=== PATIENT | female | born 1990 | race Hispanic/Latino ===

== ENCOUNTER 2016-09-07 21:22 | Emergency (ER) | payer OTHER ==
[2016-09-07 21:54] VITALS: BMI 21.9
--- NOTE | 2016-09-07 21:54 | ED PDOC ---
Arrival/HPI - General Time Seen by Provider: 09/07/16 21:50 Historian: Patient - History of Present Illness Narrative History of Present Illness (Text): 09/07/16 21:51 26 y/o female, no significant pmh, allergic to levaquin, c/o rt. lateral foot pain s/p twisted about 4 hours ago. Pt. stated that she was on the high heel, twisted the rt. lateral foot, been having pain, no ankle pain or swelling, no night sweat, no dizziness, no calf or thigh pain, no other medical or psychological complaints. Past Medical History - Provider Review Nursing Documentation Reviewed: Yes Family/Social History - Physician Review Nursing Documentation Reviewed: Yes Family/Social History: Unknown Family HX Allergies/Home Meds Allergies/Adverse Reactions: Allergies levofloxacin [From Levaquin] Adverse Reaction (Verified 09/07/16 21:53) PAIN Home Medications: Home Meds Medication Instructions Recorded Confirmed Citalopram Hydrobromide [Celexa] 40 mg PO DAILY 09/07/16 09/07/16 lamoTRIgine [Lamictal] 25 mg PO DAILY 09/07/16 09/07/16 Review of Systems - Review of Systems Constitutional: absent: Fatigue, Fevers Eyes: absent: Vision Changes ENT: absent: Hearing Changes Respiratory: absent: Cough, Sputum Cardiovascular: absent: Chest Pain Gastrointestinal: absent: Abdominal Pain, Nausea, Vomiting Musculoskeletal: Arthralgias. absent: Back Pain, Neck Pain, Joint Swelling, Myalgias Skin: absent: Rash, Pruritis, Skin Lesions, Laceration, Abscess, Ulcer, Cellulitis Neurological: absent: Headache, Dizziness, Focal Weakness, Gait Changes, Speech Changes, Facial Droop, Disequilibrium, Seizure Physical Exam Vital Signs Temp Pulse Resp BP Pulse Ox 09/07/16 23:44 16 98 09/07/16 21:54 98.0 F 97 H 16 105/66 100 - Systems Exam Head: Present: Atraumatic, Normocephalic Pupils: Present: PERRL Extroacular Muscles: Present: EOMI Conjunctiva: Present: Normal Mouth: Present: Moist Mucous Membranes Neck: Present: Normal Range of Motion Respiratory/Chest: Present: Clear to Auscultation, Good Air Exchange. No: Respiratory Distress, Accessory Muscle Use Cardiovascular: Present: Regular Rate and Rhythm, Normal S1, S2. No: Murmurs Abdomen: Present: Normal Bowel Sounds. No: Tenderness, Distention, Peritoneal Signs Back: Present: Normal Inspection Upper Extremity: Present: Normal Inspection. No: Cyanosis, Edema Lower Extremity: Present: Normal Inspection, Other (Rt. ankle/foot: +ttp on the lateral foot region with mild swelling, no ankle tenderness or swelling, negative mariano and mills sign, FROM without limitation, sensation intact, motor 5/5, +DPPT pulses, capillary refill< 2 seconds, neurovascular intact. ). No: Edema Neurological: Present: GCS=15, Speech Normal. No: Motor Func Grossly Intact, Gait Normal, Memory Normal Skin: Present: Warm, Dry, Normal Color. No: Rashes Psychiatric: Present: Alert, Oriented x 3, Normal Insight, Normal Concentration Medical Decision Making ED Course and Treatment: 09/07/16 21:53 -rt. foot xray -tylenol -observe and reassess 09/07/16 22:55 -xray show no fracture or dislocation but clinically there is swelling and painful to bear weight, posterior splint applied by me with neurovascular intact , crutches given, advised repeat xray after 7 days if pain persist. -Discharge home with posterior splint, crutches, ice compression, non-weight bearing, take tylenol for pain as needed, follow up with your own pmd and stone planer within 2 days, return to the ER for any new or worsening signs or symptoms, repeat xray after 7 days if pain persist. - RAD Interpretation Radiology Orders: 09/07/16 21:51 FOOT RIGHT 3 VIEWS ROUTINE [RAD] Stat no evidence of displaced fracture. Med Specialist: Radiologist - Medication Orders Current Medication Orders: Discontinued Medications Acetaminophen (Tylenol 325mg Tab) 650 mg PO STAT STA Stop: 09/07/16 21:52 Last Admin: 09/07/16 22:41 Dose: 650 MG MAR Pain/Vitals Document 09/07/16 22:41 [email or web address] (Rec: 09/07/16 22:42 [email or web address] [id number]) Pain Reassessment Is This A Pain ReAssessment? No Sleep Is patient sleeping during reassessment? 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 Disposition/Present on Arrival - Present on Arrival Any Indicators Present on Arrival: No History of DVT/PE: No History of Uncontrolled Diabetes: No Urinary Catheter: No History of Decub. Ulcer: No - Disposition Have Diagnosis and Disposition been Completed?: Yes Diagnosis: Foot injury, Foot pain Disposition: HOME/ ROUTINE Disposition Time: 21:54 Patient Plan: Discharge Condition: GOOD Additional Instructions: Discharge home with posterior splint, crutches, ice compression, non-weight bearing, take tylenol for pain as needed, follow up with your own pmd and stone planer within 2 days, return to the ER for any new or worsening signs or symptoms, repeat xray after 7 days if pain persist. Referrals: PCP,NO [Primary Care Provider] - Follow up with primary Berta Salinas DPM [Staff Provider] - Follow up with primary [facility] [Outside] - Follow up with primary Forms: WORK NOTE
[2016-09-07 22:01] VITALS: BP 105/66; PULSE 97; RESP 16; TEMP 98
[2016-09-07 23:44] VITALS: O2SAT 98
--- NOTE | 2016-09-08 07:29 | RAD ---
PROCEDURE: Right Foot Radiographs. HISTORY: rt. lateral foot twisted and swollen COMPARISON: None. FINDINGS: BONES: Normal. No fracture. JOINTS: Normal. SOFT TISSUES: Normal. OTHER FINDINGS: None. IMPRESSION: No evidence of acute displaced fracture. The if symptoms persist or occult fracture suspected clinically, recommend followup radiographs 5-7 days as most fractures become radiographically evident in this timeframe.
== END 2016-09-07 23:52 | disposition home or self-care (01) ==
LOC: ED 21:22
DX: S99.921A Unspecified injury of right foot, initial encounter (principal); X50.1XXA Overexertion from prolonged static or awkward postures, initial encounter; M79.671 Pain in right foot